=== PATIENT | female | born 1950 | race Caucasian/White ===

== ENCOUNTER 2016-11-02 13:27 | Emergency (ER) | payer OTHER ==
--- NOTE | 2016-11-02 14:50 | Diag Imaging Result Document ---
PROCEDURE NAME: XRAY PELVIS W/HIP 2-3VW RT - 11/02/2016 PELVIS AND 3 VIEWS OF THE RIGHT HIP: COMPARISON: 04/28/2016, 12/23/2014. FINDINGS: The whole pelvis exam is inadequate as the patient is severely rotated. There is an IVC filter. There is severe osteoarthritis of the left hip. The right hip appears grossly intact. IMPRESSION: No acute disease.
--- NOTE | 2016-11-02 16:43 | PROVIDER DOCUMENTATION ---
HPI-Musculoskeletal Pain/Inj - GENERAL Chief Complaint: Fall Stated Complaint: FALL Time Seen by Provider: 11/02/16 16:08 Source: patient, family - HX OF PRESENT ILLNESS-MUSKULOSKELTAL Nature of Presenting Problem: 66 y/o WF c/o R hip, R knee pain s/p fall x 1 day. Pt states she missed the toilet last night at around 2200 and hit toilet with R hip, then proceeded to fall between the toilet and the sink. States no head injury or LOC, but reports on coumadin. States able to ambulate on RLE with pain. Noted swelling to the R posterior and lateral hip at 1200 hours today and came here to get checked. States tingling in RLE. Denies any other sxs. Review of Systems - Adult - REVIEW OF SYSTEMS - ADULT Constitutional: reports: no symptoms reported. denies: chills, fever Eyes: reports: no symptoms reported. denies: blurred vision, double vision Ears, Nose, Mouth & Throat: reports: no symptoms reported. denies: ear pain, nose pain Cardiovascular: reports: no symptoms reported. denies: chest pain, palpitations Respiratory: reports: no symptoms reported. denies: dyspnea on exertion, shortness of breath Gastrointestinal: reports: no symptoms reported. denies: abdominal pain, nausea , vomiting Genitourinary: reports: no symptoms reported. denies: dysuria, frequency Musculoskeletal: reports: see HPI, joint pain, joint swelling. denies: back pain, neck pain Integumentary: reports: no symptoms reported Neurological: reports: see HPI, paresthesia. denies: headache/migraines, numbness Psychiatric: reports: no symptoms reported Endocrine: reports: no symptoms reported. denies: cold intolerance, heat intolerance Hematologic/Lymphatic: reports: no symptoms reported. denies: easy bruising, prolonged bleeding Allergic/Immunologic: reports: no symptoms reported All Other Systems: Reviewed and Negative Past History - Adult - PAST MEDICAL HISTORY-ADULT Review of Records: reports: Nursing Assessment Review, Medications Reviewed Cardiovascular: reports: blood clots (DVT), HTN, hyperlipidemia Respiratory: reports: sleep apnea Gastrointestinal: reports: GERD Musculoskeletal: reports: arthritis (gout), chronic pain, intervertebral disc disease Endocrine/Immune: reports: thyroid disorder (hypothyroid) Additional History: gout - PRIOR SURGERIES/PROCEDURES Surgical/Procedure History: reports: cholecystectomy, BTL, , tonsillectomy, gastric bypass - IMMUNIZATION STATUS Childhood Immunizations: See Nurse Assessment Flu Vaccine: See Nurse Assessment - FAMILY HISTORY Family History: reviewed, not pertinent Physical Exam-Injury Related - Physical Exam-Injury Related Initial Vital Signs Reviewed: Yes General Appearance: alert, mild distress Eyes: PERRL/EOMI, pink conjunctivae. negative: EOM palsy Head, Ears, Nose, Mouth & Throat: normocephalic/atraumatic, moist mucous membranes Neck: supple, normal inspection. negative: C-spine tenderness Respiratory: lungs clear, normal breath sounds. negative: crackles, rales, rhonchi, stridor, wheezing Cardiovascular: regular rate, rhythm. negative: bradycardia, tachycardia Peripheral Pulses: dorsalis-pedis (R): 2+, dorsalis-pedis (L): 2+ Back Exam: no vertebral tenderness Extremity: normal inspection, no pedal edema, normal capillary refill, abnormal NV exam (states less sensation noted on RLE), swelling (R posterior hip), tenderness (R lateral and posterior R hip). negative: deformity, pulse deficit Integumentary: normal color, warm/dry, ecchymosis (noted to R posterior hip) Neurologic: box car checker II-XII nml as tested. negative: aphasia, EOM palsy, facial droop, focal weakness, motor weakness, sensory deficit Psych/Mental Status: AL, normal mood/affect, normal thought content, normal thought process, oriented x 3 Progress - PLAN OF CARE/RESULTS Progress/Plan/Lab Results: Orders Category Date Time Status HEAD/C-SPINE W/O CONTRAST [CT] Stat Exams 11/02/16 16:06 Completed KNEE 3 VIEWS RIGHT [RAD] Stat Exams 11/02/16 16:36 Completed PELVIS W/O CONTRAST [CT] Stat Exams 11/02/16 16:06 Completed XRAY PELVIS W/HIP 2-3VW RT [RAD] Stat Exams 11/02/16 13:40 Draft Hydrocodone/APAP 7.5 mg/325 mg [[place]-7.5] Med 11/02/16 17:53 Discontinued 1 each PO NOW ONE Ondansetron Odt [Zofran Odt] Med 11/02/16 17:53 Discontinued 4 mg PO NOW ONE Vital Signs Temp Pulse Resp BP Pulse Ox 11/02/16 18:10 85 18 115/88 98 11/02/16 13:37 98.7 F 92 H 18 118/86 98 pistachio nut Allergy (Intermediate, Verified 11/02/16 16:48) RASH Levothyroxine [Synthroid] 88 microgm PO DAILY 12/06/14 Pantoprazole [Protonix] 40 mg PO DAILY@0700 12/06/14 Warfarin [Coumadin] 5 mg PO QHS 12/06/14 Fentanyl 75 mg TD DIRECTED 04/18/15 Oxycodone HCl/Acetaminophen [Percocet 10-325 mg Tablet] 1 each PO TID 04/18/15 Clonazepam [Klonopin] 1 tab PO DAILY 11/02/16 Hydrochlorothiazide 1 tab PO DAILY 11/02/16 Metoprolol [Lopressor] 1 tab PO BID 11/02/16 Ondansetron [Zofran] 4 mg PO Q6H PRN PRN #10 tablet 11/02/16 Tramadol [Ultram] 50 mg PO Q8HR #7 tablet 11/02/16 Venlafaxine [Effexor] 1 tab PO DAILY 11/02/[address] Casillas; he agreed with d/c home and f/u with orthopedist after reviewing CT scans. Discussed results with pt and family, including return precautions and f/u with orthopedist. - XRAY 1 XRAY: Right XRAY Study: Pelvis, Hip Impression: See EMR Report (No acute disease, per Dr. Haines) 2 XRAY: Right XRAY Study: Knee XRAY Interpretation: No fx - CT/MRI 1 CT Study: Cervical Spine, Head Impression: See EMR Report (Cspine: 2.9 mm anteriorlisthesis at C4-5 and C5-6 which likely relates to facet degenerative disease; no fx, no precervical soft tissue swelling. Head: no evidence of intracranial injury. -per Dr. Vieira) 2 CT Study: Pelvis Impression: See EMR Report (substantial DJD at L hip; no fx or dislocation seen , per Dr. 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 Ice or heat as needed. ED Follow Up Instructions: You have been treated by a care provider in the Emergency Department. These instructions are being provided to you so you can have an understanding of how to care for yourself upon discharge. Upon discharge from the Emergency Department, you are responsible for making arrangements for follow-up care by a physician of your choice. Take all prescribed medications as directed. Return to the Emergency Department immediately for any new or worsening symptoms. You may call the Physician Referral phone number at [phone] to obtain a list of Physicians who are taking new patients. Prescriptions: Tramadol [Ultram] 50 mg PO Q8HR #7 tablet Ondansetron [Zofran] 4 mg PO Q6H PRN PRN #10 tablet PRN Reason: Nausea Referrals: Yue Luevano Scribe [Primary Care Provider] - Carlos Velasquez MD [STAFF PHYSICIAN] - Instructions: Knee Sprain, [id number], Contusion, [id number] Attestation - Physician/ Mid-level Attestation Patient care was provided by Mid-level provider (WATER REGULATOR AND VALVE REPAIRER/PA):: Yes Mid-level provider:: Mamie Mars Mid-level documentation review:: The Mid-level provider documentation, treatment plan and medical decision making was reviewed by the physician who agrees with all treatment and medical decision making by the P.
--- NOTE | 2016-11-02 17:30 | Diag Imaging Result Document ---
PROCEDURE NAME: HEAD/C-SPINE W/O CONTRAST - 11/02/2016 CT HEAD WITHOUT CONTRAST: FINDINGS: A dose reduction probable was used. Compatible to 06/12/2016. There is no evidence of intracranial hemorrhage, mass effect, midline shift, or hydrocephalus. There is mild ventricular asymmetry which is stable and compatible with normal variation. There is no evidence of infarct, although acute infarcts may not be immediately visible. There is no skull fracture. IMPRESSION: No evidence of intracranial injury. No intracranial hemorrhage or mass effect. CT CERVICAL SPINE WITHOUT CONTRAST: FINDINGS: Axial and reformatted sagittal and coronal images are obtained. No comparison exam. There are substantial degenerative changes at the atlantoaxial articulation. There is some multilevel degenerative disk disease. There are substantial degenerative changes of multilevel facets. There is 2.9 mm anterolisthesis at C4-5. There is a 2.9 mm anterolisthesis at C5-6. There is substantial facet degenerative disease at these levels, at C4-5 bilaterally and at C5-6 on the right. The anterolisthesis at these levels likely relates to the degenerative disease. There is no fracture identified. There is no precervical soft tissue swelling identified. There is possible hazy infiltrate at the left upper lobe lung visible on the inferiormost images of the exam. There is no apical pneumothorax seen. IMPRESSION: 1. Substantial multilevel degenerative disease. 2.9 mm anterolisthesis at C4-5 and at C5-6, which likely relates to the degenerative disease. 2. No evidence of fracture. No precervical soft tissue swelling. 3. Possible hazy infiltrate at left upper lobe lung visible on the inferiormost images of the exam. [facility]
--- NOTE | 2016-11-02 17:32 | Diag Imaging Result Document ---
PROCEDURE NAME: PELVIS W/O CONTRAST - 11/02/2016 CT BONY PELVIS WITHOUT CONTRAST: FINDINGS: Axial and reformatted coronal and sagittal images are obtained. A dose reduction protocol was used. There are moderate to severe osteoarthritic changes at the left hip. There is bony hypertrophy at the medial and lateral aspect of the left femoral neck. This may relate to degenerative disease or to old injury. There is no acute fracture identified. There is no hip dislocation seen. There are substantial degenerative changes of lower lumbar facets noted. IMPRESSION: 1. Substantial osteoarthritic changes at left hip. Bony hypertrophy at left femoral neck consistent with degenerative change or old injury. 2. No evidence of acute fracture. No hip dislocation. [facility]
[2016-11-02] MEDS ORDERED: NORCO-7.5 PO ONE (17:53)
[2016-11-02] MEDS ORDERED: ZOFRAN ODT PO ONE (17:53)
[2016-11-02 18:10] VITALS: BP 115/88
--- NOTE | 2016-11-02 18:19 | Diag Imaging Result Document ---
PROCEDURE NAME: KNEE 3 VIEWS RIGHT - 11/02/2016 RIGHT KNEE 3 VIEWS: COMPARISON: No comparison exam. FINDINGS: There are moderate osteoarthritic changes. There is thickening of the suprapatellar bursa which is suspicious for joint effusion. There is no fat fluid level identified. There is mild lateral subluxation of the femur on the tibia which may be longstanding. There is no dislocation identified. There is no fracture identified. IMPRESSION: 1. Moderate osteoarthritic changes. Apparent joint effusion. 2. Mild lateral subluxation of the femur on tibia which may be longstanding. No fracture identified.
== END 2016-11-02 18:10 | disposition home or self-care (01) ==
LOC: ED 13:27
DX: S70.02XA Contusion of left hip, initial encounter (principal); S83.91XA Sprain of unspecified site of right knee, initial encounter; M47.812 Spondylosis without myelopathy or radiculopathy, cervical region; M25.561 Pain in right knee; M25.551 Pain in right hip; M25.451 Effusion, right hip; M25.461 Effusion, right knee; R20.9 Unspecified disturbances of skin sensation; Z79.899 Other long term (current) drug therapy; Z86.718 Personal history of other venous thrombosis and embolism; I10 Essential (primary) hypertension; E78.5 Hyperlipidemia, unspecified; K21.9 Gastro-esophageal reflux disease without esophagitis; M10.9 Gout, unspecified; G89.29 Other chronic pain; E03.9 Hypothyroidism, unspecified; Z98.84 Bariatric surgery status; W18.09XA Striking against other object with subsequent fall, initial encounter; Z79.01 Long term (current) use of anticoagulants
CPT/HCPCS: 70450; 72125; 72192